=== PATIENT | male | born 1970 | race Caucasian/White ===

== ENCOUNTER 2024-10-04 09:55 | Inpatient (IN) | payer BC ==
[2024-10-04 10:32] VITALS: BMI 22.0
[2024-10-04] MEDS ORDERED: IBUPROFEN 400 MG TABLET (FP) PO PRN (12:38)
[2024-10-04] MEDS ORDERED: NALOXONE (NARCAN) HCL 4 MG/0.1 ML SPRAY NS PRN (12:38)
[2024-10-04] MEDS ORDERED: BENZONATATE 200 MG CAPSULE PO PRN (12:38)
[2024-10-04] MEDS ORDERED: guaiFENesin 600 MG TABLET.ER (FP) PO PRN (12:38)
[2024-10-04] MEDS ORDERED: IBUPROFEN 600 MG TABLET (FP) PO PRN (12:38)
[2024-10-04] MEDS ORDERED: BENZOCAINE/MENTHOL (CHLORASEPTIC ) LOZENGE MM PRN (12:38)
[2024-10-04] MEDS ORDERED: LOPERAMIDE HCL 2 MG CAPSULE PO PRN (12:38)
[2024-10-04] MEDS ORDERED: NICOTINE POLACRILEX 2 MG GUM BUC PRN (12:38)
[2024-10-04] MEDS: BUPRENORPHINE/NALOXONE 8 MG/2 MG FILM PACKET SL SCH (14:17)
[2024-10-04] MEDS: TUBERCULIN PPD 5 TU/0.1ML SYRINGE (IN PATIENT USE ONLY) ID ONE (17:54)
[2024-10-04] MEDS: clonazePAM 0.5 MG ODT TABLETS SL ONE (19:10)
[2024-10-04] MEDS: BUPRENORPHINE/NALOXONE 8 MG/2 MG FILM PACKET SL ONE (19:12)
[2024-10-04] MEDS: BUPRENORPHINE/NALOXONE 2 MG/0.5 MG FILM PACKET SL ONE (20:33)
[2024-10-04] MEDS ORDERED: ATORVASTATIN CA 80 MG TABLET (FP) PO SCH (22:00)
[2024-10-04] MEDS: ATORVASTATIN CA 80 MG TABLET (FP) PO SCH (22:34)
[2024-10-04] MEDS: MELATONIN 5 MG TABLETS PO SCH (22:37)
[2024-10-04] MEDS: THIAMINE 100 MG TABLET PO SCH (22:37)
[2024-10-04] MEDS: hydrOXYzine PAMOATE 25 MG CAPSULE (FP) PO PRN (22:51)
[2024-10-05] MEDS: BUPRENORPHINE/NALOXONE 8 MG/2 MG FILM PACKET SL SCH (05:44)
[2024-10-05] MEDS ORDERED: ASPIRIN 81 MG CHEWABLE TABLETS PO SCH (10:00)
[2024-10-05] MEDS ORDERED: CLOPIDOGREL BISULFATE 75 MG TABLET (FP) PO SCH (10:00)
[2024-10-05] MEDS: LOSARTAN POTASSIUM 50 MG TABLET PO SCH (10:51)
[2024-10-05] MEDS: PRENATAL VITAMINS W/ FOLIC ACID TABLET (FP) PO SCH (10:51)
[2024-10-05] MEDS: CLOPIDOGREL BISULFATE 75 MG TABLET (FP) PO SCH (10:51)
[2024-10-05] MEDS: NICOTINE 7 MG/24 HOURS TOPICAL PATCH TD SCH (10:52)
[2024-10-05] MEDS: clonazePAM 1 MG ODT TABLETS SL ONE (10:53)
[2024-10-05 11:19] LABS: HEMATOCRIT 39.5 % (40.1-51.0); HEMOGLOBIN 12.5 g/dL (13.7-17.5); MCHC 31.6 g/dl (32.3-36.5); MEAN CELL VOLUME 96.1 fl (79.0-92.2); MEAN PLT VOLUME 8.9 fl (9.4-12.4); PLATELET COUNT 250 x10^3/uL (163-337); RDW 14.3 % (12.2-16.1)
[2024-10-05 11:44] LABS: POTASSIUM 4.1 mmol/L (3.5-5.1)
[2024-10-05 11:53] LABS: CALCIUM 9.9 mg/dL (8.5-10.1)
[2024-10-05 11:56] LABS: CREATININE 0.9 mg/dL (0.55-1.3)
[2024-10-05 11:58] LABS: BILIRUBIN,TOTAL 0.8 mg/dL (0.2-1); TOT PROT 7.7 g/dl (6.4-8.2)
[2024-10-05 13:34] LABS: SYPHILIS W/ RPR CONF NON-REACTIVE (NONREACTIVE)
[2024-10-05 14:02] LABS: HCV DIAGNOSTIC IN-HOUSE W/RFLX NON-REACTIVE (NONREACTIVE)
[2024-10-05] MEDS: clonazePAM 0.5 MG ODT TABLETS SL SCH (14:18)
[2024-10-05] MEDS ORDERED: ATORVASTATIN CA 40 MG TABLET (FP) ONE (20:22)
[2024-10-06 12:07] LABS: PH,URINE 6.5 (5.0-8.0); URINE APPEARANCE CLEAR; URINE BILIRUBIN NEGATIVE (NEGATIVE); URINE COLOR YELLOW; URINE GLUCOSE (UA) NEGATIVE (NEGATIVE); URINE KETONE NEGATIVE (NEGATIVE); URINE LEUK ESTERASE NEGATIVE (NEGATIVE); URINE NITRITE NEGATIVE (NEGATIVE); URINE PROTEIN NEGATIVE (NEGATIVE); URINE UROBILINOGEN 0.2 mg/dL (0.2-1.0)
[2024-10-06] MEDS ORDERED: ATORVASTATIN CA 40 MG TABLET (FP) ONE (21:03)
[2024-10-07] MEDS: PARoxetine HCL 10 MG TABLET PO SCH (11:25)
[2024-10-07] MEDS: ACAMPROSATE CALCIUM 333 MG TABLET.DR PO SCH (14:24)
[2024-10-08] MEDS: ASPIRIN 81 MG CHEWABLE TABLETS PO SCH (09:57)
[2024-10-08] MEDS: ACETAMINOPHEN 325 MG TABLET (FP) PO PRN (14:15)
[2024-10-09] MEDS: MAG HYDROX/AL HYDROX/SIMETH 30 ML UNIT-DOSE CUP PO PRN (06:32)
[2024-10-09] MEDS ORDERED: ATORVASTATIN CA 40 MG TABLET (FP) ONE (20:37)
[2024-10-10] MEDS ORDERED: ATORVASTATIN CA 40 MG TABLET (FP) ONE (20:41)
[2024-10-11] MEDS: clonazePAM 0.5 MG ODT TABLETS SL SCH (14:15)
[2024-10-11] MEDS ORDERED: ATORVASTATIN CA 40 MG TABLET (FP) ONE (19:49)
[2024-10-12] MEDS ORDERED: ATORVASTATIN CA 40 MG TABLET (FP) ONE (20:54)
[2024-10-13] MEDS ORDERED: ATORVASTATIN CA 40 MG TABLET (FP) ONE (21:23)
[2024-10-14] MEDS ORDERED: ATORVASTATIN CA 40 MG TABLET (FP) ONE (20:56)
[2024-10-15] MEDS ORDERED: ATORVASTATIN CA 40 MG TABLET (FP) ONE (21:41)
[2024-10-16] MEDS ORDERED: ATORVASTATIN CA 40 MG TABLET (FP) ONE (18:35)
[2024-10-17] MEDS ORDERED: ATORVASTATIN CA 40 MG TABLET (FP) ONE (19:24)
[2024-10-18] MEDS ORDERED: ATORVASTATIN CA 40 MG TABLET (FP) ONE (20:44)
[2024-10-19] MEDS: ONDANSETRON *ODT* 4 MG TABLET SL PRN (17:42)
[2024-10-19] MEDS: ACETAMINOPHEN 325 MG TABLET (FP) PO PRN (17:42)
[2024-10-19] MEDS ORDERED: ATORVASTATIN CA 40 MG TABLET (FP) ONE (19:12)
[2024-10-20] MEDS ORDERED: ATORVASTATIN CA 40 MG TABLET (FP) ONE (21:01)
[2024-10-21] MEDS ORDERED: ATORVASTATIN CA 40 MG TABLET (FP) ONE (21:28)
[2024-10-22] MEDS: MAGNESIUM HYDROX 2400MG/30ML ORAL SUSPENSION 30 ML CUP PO PRN (06:44)
[2024-10-22] MEDS ORDERED: ATORVASTATIN CA 40 MG TABLET (FP) ONE (18:56)
[2024-10-23 05:25] VITALS: RESP 16; TEMP 96.9
[2024-10-24] MEDS: POLYETHYLENE GLYCOL (HEALTHYLAX) 3350 17 GM PACKET PO PRN (00:59)
[2024-10-24 09:32] VITALS: BP 131/79; PULSE 64
== END 2024-10-24 11:48 | disposition home or self-care (01) | DRG 772 ==
LOC: YASAS 09:55 → Y3NR 13:30 → Y3W 10-05 09:05
PROVIDERS: ADMIT Psychiatry & Neurology Pain Medicine; ATTEND Psychiatry & Neurology Pain Medicine
PROC: HZ42ZZZ Group Counseling for Substance Abuse Treatment, Cognitive-Behavioral (ICD-10-PCS; principal; 2024-10-04)
DX: F11.20 Opioid dependence, uncomplicated (principal); F10.20 Alcohol dependence, uncomplicated; F14.20 Cocaine dependence, uncomplicated; F13.20 Sedative, hypnotic or anxiolytic dependence, uncomplicated; F17.210 Nicotine dependence, cigarettes, uncomplicated; F31.9 Bipolar disorder, unspecified; E78.5 Hyperlipidemia, unspecified; I25.10 Atherosclerotic heart disease of native coronary artery without angina pectoris; I10 Essential (primary) hypertension; B86 Scabies; R45.851 Suicidal ideations; R11.2 Nausea with vomiting, unspecified
CPT/HCPCS: 36415; 80053; 80305; 80307; 81003; 85027; 86780; 86803; 87811; 93005; 93010; Q0162